=== PATIENT | female | born 2000 | race Caucasian/White ===

== ENCOUNTER 2019-03-22 12:00 | Emergency (ER) | payer BC, SELFPAY ==
[2019-03-22 12:12] VITALS: BP 146/95; PULSE 102; RESP 18; TEMP 36.4; O2SAT 97; BMI 21.9
--- NOTE | 2019-03-22 12:14 | ED_ITS ---
Entered by Caryn Sen, acting as scribe for Mar 22, 2019 12:00 HPI - Abdominal Pain General: Chief Complaint: Abdominal Pain Stated Complaint: Abd pain Time Seen by Provider: 03/22/19 12:12 Source: patient, family and RN notes reviewed Mode of arrival: ambulatory Limitations: no limitations History of Present Illness: HPI narrative: 18 yo female presents to ED with complaints of RLQ abdominal pain. She describes the pain as dull. She said the pain is worse when she walks. She states the pain began 2 days ago (it happened before about 4 months ago and was treated for a UTI, per the patient's dad). The severity of the pain is intermittent. The patient states she ran a fever yesterday. Her last period was 2 months ago and her periods are abnormal. The patient's PCP is Jelly Cochran MD elicited complaint: abdominal pain Pertinent past history: past UTI Onset (ago): day(s) (2) Pain Consistency: intermittent Location: RLQ Severity: moderate Quality: dull Radiation: none Migration to: no migration Exacerbating factors: movement and other (walking) Relieving factors: nothing Associated Symptoms: Denies chills, diarrhea, dysuria, nausea and vomiting Review of Systems Const: Denies: chills, body aches or change in appetite Eyes: Denies: blurry vision or eye discomfort ENMT: Denies: throat pain or dental pain Card: Denies: chest pain Resp: Denies: shortness of breath GI: Reports: abdominal pain; Denies: nausea, vomiting or diarrhea : Denies: painful urination Musc: Denies: neck pain or back pain Skin/Breast: Denies: rash Neuro: Denies: headache Psych: Denies: depression Yusuf/Lymph: Denies: easy bruising All/Imm: Denies: hives PFSH ED PFSH: Statuses (acute, chronic, etc) shown below reflect problem list status as previously entered and may not be historically accurate Social History Smoking and tobacco status: never smoked Physical Exam Const: COMMON NORMALS: no apparent distress, oriented x3 and healthy appearing HENMT: COMMON NORMALS: normocephalic and head/scalp atraumatic HEAD & SCALP: normocephalic and atraumatic Eye: COMMON NORMALS: PERRL and EOMs intact bilaterally PUPIL: Yes PERRL Neck/C-Spine: COMMON NORMALS: full ROM and supple Chest: COMMONS NORMALS: inspection of chest normal and palpation of chest normal Resp: COMMON NORMALS: normal respiratory effort, no retractions, no use of accessory muscles and clear to auscultation bilaterally AUSCULTATION: clear to auscultation bilaterally Cardio: COMMON NORMALS: regular rate, regular rhythm and no murmurs RATE: regular rate RHYTHM: regular rhythm GI: COMMON NORMALS: no masses OTHER: slight rlq tenderness Extremity: COMMON NORMALS: normal to inspection and full ROM Neuro: COMMON NORMALS: oriented x3, moves all extremities and no focal motor deficits Psych: COMMON NORMALS: mental status grossly normal, thought process normal and cooperative THOUGHT PROCESS: normal thought process Skin: COMMON NORMALS: no rashes or lesions noted and no wounds GENERAL SKIN EXAM: no rashes or lesions noted Course Vital Signs: Vital signs: Vital Signs Temperature 98.2 F 03/22/19 15:51 Pulse Rate 81 03/22/19 15:51 Respiratory Rate 16 03/22/19 15:51 Blood Pressure 113/75 03/22/19 15:51 Pulse Oximetry 96 03/22/19 15:51 MDM - Abdominal Pain MDM Narrative: Medical decision making narrative: Patient presents here with abdominal pain. Ordered CT to rule out appendicitis since pain is in right lower quadrant. Patient CT scan here shows no signs appendicitis. Her urinalysis is normal. White count is normal as well. Patient is stable for discharge and return if worsening. Lab Data: Labs: Lab Results 03/22/19 03/22/19 03/22/19 Range/Units 12:39 12:39 12:39 WBC 4.9 (4.5-13.0) 10^3/ uL RBC 5.49 H (4.1-5.3) 10^6/u L Hgb 16.2 H (11.5-15.3) g/dL Hct 48.4 H (37.0-47.0) % MCV 88.2 (81-99) fL MCH 29.5 (28.0-34.0) pg MCHC 33.5 (30.0-36.0) g/dL RDW 12.1 (12.1-15.1) % Plt Count 244 (130-400) 10^3/c mm MPV 9.8 (7.4-10.4) fL Neut % (Auto) 59.3 % Lymph % (Auto) 31.2 % [place] % (Auto) 6.5 % Eos % (Auto) 2.4 % Baso % (Auto) 0.4 % Neut # (Auto) 2.9 (1.8-8.0) 10^3/u L Lymph # (Auto) 1.5 (1.5-6.5) 10^3/u L [place] # (Auto) 0.3 (0.2-0.9) 10^3/u L Eos # (Auto) 0.1 (0.0-0.8) 10^3/u L Baso # (Auto) 0.0 (0.0-0.1) 10^3/u L Nucleated RBC % (a uto) 0 % Nucleated RBCs # 0.0 /100WBC Sodium 139 (136-145) mmol/L Potassium 3.6 (3.5-5.1) mmol/L Chloride 100 (98-107) mmol/L Carbon Dioxide 27 (22-29) mmol/L Anion Gap 15.6 (5-19) BUN 13 (6-20) mg/dL Creatinine 1.0 H (0.5-0.9) mg/dL GFR Calculation 71.4 L (90-130) mL/min Glucose 91 (74-109) mg/dL Calcium 10.6 H (8.5-10.5) mg/dL Total Bilirubin 0.7 (0.15-1.2) mg/dL AST 21 (0-32) U/L ALT 15 (0-33) U/L Alkaline Phosphata se 70 (35-105) IU/L Total Protein 8.8 H (6.6-8.7) g/dL Albumin 5.2 (3.5-5.2) g/dL Globulin 3.6 (1.3-4.6) g/dL Lipase 21 (13-60) U/L Ser , Jamar i-Qnt < 0.50 mIU/mL Discharge Plan Discharge Patient Disposition: Home, Self-Care Clinical Impression: Abdominal pain Qualifiers: Abdominal location: generalized Qualified Code(s): R10.84 - Generalized abdominal pain Condition: Stable Prescriptions: New Zofran 4 mg tablet 4 mg PO QID PRN (Reason: nausea and vomiting) Qty: 14 RF: 0 Discharge Orders: Discharge Order (Routine); Ordered 03/22/19 Ordered By: Yareli Dorsey Discharge Diet: Advance as tolerated Discharge Activity: Resume usual activity Patient Instructions: Abdominal Pain (ED) Discharge Date/Time: 03/22/19 15:52 Coding Level of Care Code ED Fund Manager for Chg Fwtereza The documentation recorded by the Francy cochran Valerie R accurately reflects the service I personally performed and the decisions made by Sunita page Korby, MD Mar 22, 2019 12:00
--- NOTE | 2019-03-22 12:17 | CTR_ITS ---
PROCEDURE INFORMATION: Exam: CT Abdomen And Pelvis With Contrast Exam date and time: 03/22/2019 12:19 PM Age: 18 years old Clinical indication: Abdominal pain; Localized; Right lower quadrant (rlq); Additional info: Right abd pain TECHNIQUE: Imaging protocol: Computed tomography of the abdomen and pelvis with intravenous contrast. Total DLP: 559.39 mGy-cm Radiation optimization: All CT scans at this facility use at least one of these dose optimization techniques: automated exposure control; mA and/or kV adjustment per patient size (includes targeted exams where dose is matched to clinical indication); or iterative reconstruction. Contrast material: OMNI 300; Contrast volume: 95 ml; Contrast route: IV; COMPARISON: No relevant prior studies available. FINDINGS: Liver: Normal. No mass. Gallbladder and bile ducts: Normal. No calcified stones. No ductal dilation. Pancreas: Normal. No ductal dilation. Spleen: Normal. No splenomegaly. Adrenals: Normal. No mass. Kidneys and ureters: Normal. No hydronephrosis. Stomach and bowel: Unremarkable. No obstruction. No mucosal thickening. Appendix: Normal small appendix. Intraperitoneal space: Unremarkable. No free air. No significant fluid collection. Vasculature: Unremarkable. No abdominal aortic aneurysm. Lymph nodes: Unremarkable. No enlarged lymph nodes. Bladder: Unremarkable as visualized. Reproductive: Probable 9 mm cervical nabothian cyst. Otherwise, unremarkable uterus and ovaries. Bones/joints: Unremarkable. No acute fracture. Soft tissues: Unremarkable. CT/CT abdomen pelvis w con* [id number] IMPRESSION: No acute findings. Radiation Dose CTDIVOL = (mGy): DLP = 559.39 (mGy-cm)
[2019-03-22 12:34] VITALS: RESP 16
[2019-03-22] MEDS: ondansetron 2 mg/ML SDV 2 mL 4 MG IVP (12:34)
[2019-03-22] MEDS: morphine 4 mg/mL SDV 1 mL IVP (12:34)
[2019-03-22 13:07] LABS: Basophils % 0.4 %; Eosinophils # 0.1 10^3/uL (0.0-0.8); Eosinophils % 2.4 %; Hematocrit 48.4 % (37.0-47.0); Hemoglobin 16.2 g/dL (11.5-15.3); Lymphocytes # 1.5 10^3/uL (1.5-6.5); Lymphocytes % 31.2 %; Mean Corpuscular HGB Conc 33.5 g/dL (30.0-36.0); Mean Corpuscular Hemoglobin 29.5 pg (28.0-34.0); Mean Corpuscular Volume 88.2 fL (81-99); Mean Platelet Volume 9.8 fL (7.4-10.4); Monocytes # 0.3 10^3/uL (0.2-0.9); Monocytes % 6.5 %; Neutrophils # 2.9 10^3/uL (1.8-8.0); Neutrophils % 59.3 %; Nucleated Red Blood Cells % 0 %; Platelet Count 244 10^3/cmm (130-400); Red Blood Count 5.49 10^6/uL (4.1-5.3); Red Cell Distribution Width 12.1 % (12.1-15.1); White Blood Count 4.9 10^3/uL (4.5-13.0)
[2019-03-22 13:18] LABS: Alanine Aminotransferase 15 U/L (0-33); Albumin Level 5.2 g/dL (3.5-5.2); Alkaline Phosphatase 70 IU/L (35-105); Anion Gap 15.6 (5-19); Aspartate Amino Transferase 21 U/L (0-32); Blood Urea Nitrogen 13 mg/dL (6-20); Calcium 10.6 mg/dL (8.5-10.5); Carbon Dioxide 27 mmol/L (22-29); Chloride 100 mmol/L (98-107); Globulin 3.6 g/dL (1.3-4.6); Glomerular Filtration Rate 71.4 mL/min (90-130); Glucose 91 mg/dL (74-109); Lipase 21 U/L (13-60); Potassium 3.6 mmol/L (3.5-5.1); Sodium 139 mmol/L (136-145); Total Bilirubin 0.7 mg/dL (0.15-1.2); Total Protein 8.8 g/dL (6.6-8.7)
[2019-03-22 14:01] LABS: HCG Quantitative < 0.50 mIU/mL
[2019-03-22 14:09] VITALS: BP 104/68; PULSE 72; O2SAT 95
[2019-03-22] MEDS: iohexol 300 mg/mL 100 mL Btl IV (14:46)
[2019-03-22 15:40] VITALS: BP 113/75; PULSE 81; O2SAT 97
[2019-03-22 15:51] VITALS: BP 113/75; PULSE 81; RESP 16; TEMP 36.8; O2SAT 96
== END 2019-03-22 15:52 | disposition home or self-care (01) ==
PROVIDERS: Emergency Provider Emergency Medicine
DX: R10.84 Generalized abdominal pain (principal)
CPT/HCPCS: 74177; 80053; 83690; 84702; 85025; 96374; 96375; 99283; A9270; J2270; J2405; Q9967